=== PATIENT | female | born 1940 | race Caucasian/White ===

== ENCOUNTER 2023-04-10 21:56 | Inpatient (IN) | payer MEDICARE, BC ==
[~2023-04-10] VITALS: Ht 160 cm; Wt 63.5 kg
[2023-04-13] MEDS ORDERED: ASPI-869 PO (16:43)
[2023-04-13] MEDS ORDERED: ATOR40TA PO (16:43)
[2023-04-13] MEDS ORDERED: NICO-671 TD (16:49)
[2023-04-13] MEDS ORDERED: LOSA25TA27 PO (16:49)
[2023-04-13] MEDS ORDERED: FAMO-132 PO (16:49)
[2023-04-13] MEDS ORDERED: HEPA500034 SQ (16:49)
[2023-04-13] MEDS ORDERED: DOCU-141 PO (16:49)
[2023-04-13] MEDS ORDERED: ACET-3117 PO (16:49)
[2023-04-13] MEDS ORDERED: POLY17PO4 PO (17:11)
[2023-04-13] MEDS ORDERED: ONDA4VIA52 IV (17:11)
[2023-04-13] MEDS ORDERED: ACETAMINOPHEN 325 MG TABLET PO PRN (19:00)
[2023-04-13] MEDS ORDERED: MIRALAX 17 GM POWD.PACK PO PRN (19:15)
[2023-04-13] MEDS: ATORVASTATIN 40 MG TABLET PO SCH (22:19)
[2023-04-13] MEDS: HEPARIN SODIUM,PORCINE 5,000 UNITS/ML VIAL SQ SCH (22:48)
[2023-04-14 06:11] VITALS: BP 130/52; TEMP 98.1
[2023-04-14] MEDS: PANTOPRAZOLE SODIUM 40 MG TABLET.DR PO SCH (06:42)
[2023-04-14] MEDS: ASPIRIN 325 MG TABLET PO SCH (08:11)
[2023-04-14] MEDS: HEPARIN SODIUM,PORCINE 5,000 UNITS/ML VIAL SQ SCH (08:11)
[2023-04-14] MEDS: DOCUSATE SODIUM 100 MG CAPSULE PO SCH ×2 (08:12→17:31)
[2023-04-14] MEDS: NICOTINE 21 MG/24HR PATCH TD SCH (08:13)
[2023-04-14 08:20] VITALS: BP 140/71; TEMP 97.9
[2023-04-14] MEDS: LOSARTAN POTASSIUM 25 MG TABLET PO SCH (08:28)
[2023-04-14] MEDS: SPIRIVA RESPIMAT 1.25 MCG INH SCH (09:56)
[2023-04-14] MEDS: STIOLTO RESPIMAT INH SCH (09:56)
[2023-04-15] MEDS: ATORVASTATIN 40 MG TABLET PO SCH (00:18)
[2023-04-15] MEDS: HEPARIN SODIUM,PORCINE 5,000 UNITS/ML VIAL SQ SCH ×2 (00:19→09:08)
[2023-04-15] MEDS: PANTOPRAZOLE SODIUM 40 MG TABLET.DR PO SCH (06:37)
[2023-04-15 08:50] LABS: PLATELET COUNT (AUTO) 191 K/uL (179-408)
[2023-04-15] MEDS: SPIRIVA RESPIMAT 1.25 MCG INH SCH (09:04)
[2023-04-15] MEDS: DOCUSATE SODIUM 100 MG CAPSULE PO SCH (09:04)
[2023-04-15] MEDS: ASPIRIN 325 MG TABLET PO SCH (09:04)
[2023-04-15] MEDS: STIOLTO RESPIMAT INH SCH (09:04)
[2023-04-15 09:05] VITALS: BP 142/68
[2023-04-15] MEDS: LOSARTAN POTASSIUM 25 MG TABLET PO SCH (09:05)
[2023-04-15] MEDS: NICOTINE 21 MG/24HR PATCH TD SCH (09:09)
[2023-04-15 09:12] LABS: BASOPHILS % (AUTO) 0.5 % (0.0-2.0); EOSINOPHILS % (AUTO) 0.5 % (0.0-7.0); HEMATOCRIT 46.5 % (31.2-41.9); HEMOGLOBIN 15.5 g/dL (10.9-14.3); LYMPHOCYTES % (AUTO) 24.1 % (20.5-51.5); MEAN CORPUSCULAR HEMOGLOBIN 31.5 uug (24.7-32.8); MEAN CORPUSCULAR HGB CONC 33 g/dL (32.3-35.6); MEAN CORPUSCULAR VOLUME 94.4 fL (75.5-95.3); MONOCYTES # (AUTO) 0.7 K/uL (0.1-1.30); MONOCYTES % (AUTO) 8.4 % (0.0-11.0); NEUTROPHILS # (AUTO) 5.5 K/uL (1.8-8.9); NEUTROPHILS % (AUTO) 66.5 % (38.5-71.5); RED BLOOD CELL COUNT(AUTO) 4.92 MIL/uL (3.63-4.92); WHITE BLOOD COUNT (AUTO) 8.3 K/uL (3.8-11.8)
[2023-04-15 09:54] LABS: DIFFERENTIAL COMMENT 1
[2023-04-15 10:18] LABS: ALANINE AMINOTRANSFERASE 55 U/L (14-59); ALBUMIN 3.2 g/dL (3.4-5.0); ALKALINE PHOSPHATASE 170 U/L (50-136); ASPARTATE AMINOTRANSFERASE 37 U/L (15-37); BILIRUBIN,TOTAL 0.5 mg/dL (0.2-1.0); CALCIUM 9.6 mg/dL (8.5-10.1); CARBON DIOXIDE 31 mmol/L (21-32); CHLORIDE 102 mmol/L (98-107); CREATININE 1.2 mg/dL (0.6-1.3); GLUCOSE 99 mg/dL (74-106); MAGNESIUM 2.1 mg/dL (1.8-2.4); PHOSPHOROUS 4.1 mg/dL (2.5-4.9); POTASSIUM 4.8 mmol/L (3.5-5.1); SODIUM SERUM 138 mmol/L (136-145); TOTAL PROTEIN, SERUM 7.3 g/dL (6.4-8.2); UREA NITROGEN, BLOOD 29 mg/dL (7-18)
[2023-04-15] MEDS ORDERED: SPIRIVA RESPIMAT 1.25 MCG INH SCH (12:22)
[2023-04-15] MEDS ORDERED: STIOLTO RESPIMAT INH SCH (12:24)
== END 2023-04-15 14:54 | disposition short-term general hospital (02) | DRG 57 ==
LOC: MEDSURG3 21:56 → UNDOADMIN 21:56
PROVIDERS: ADMIT Physical Medicine & Rehabilitation Pain Medicine; ATTEND Physical Medicine & Rehabilitation Pain Medicine
DX: I69.354 Hemiplegia and hemiparesis following cerebral infarction affecting left non-dominant side (principal); N17.9 Acute kidney failure, unspecified; F03.93 Unspecified dementia, unspecified severity, with mood disturbance; E11.9 Type 2 diabetes mellitus without complications; I10 Essential (primary) hypertension; I25.10 Atherosclerotic heart disease of native coronary artery without angina pectoris; Z95.1 Presence of aortocoronary bypass graft; K21.9 Gastro-esophageal reflux disease without esophagitis; M19.90 Unspecified osteoarthritis, unspecified site; F39 Unspecified mood [affective] disorder
CPT/HCPCS: 36415; 83735; 84100; 85025; 97535-GO-CO; A4663; G0378; J1644; J8499

== ENCOUNTER 2023-04-10 21:56 | Inpatient (IN) | payer MEDICARE, MEDICAID, OTHER, BC ==
[~2023-04-10] VITALS: Ht 157.5 cm; Wt 63.5 kg
[2023-04-10 22:00] VITALS: BP 130/78; TEMP 98.2; O2SAT 93
[2023-04-10] MEDS ORDERED: REMEDY ESSENTIAL ZINC PASTE 113 GM TOP PRN (22:15)
[2023-04-11 05:10] VITALS: BP 115/72; TEMP 98.2; O2SAT 94
[2023-04-11] MEDS ORDERED: ACETAMINOPHEN 325 MG TABLET PO PRN (10:30)
[2023-04-11] MEDS ORDERED: Medication Not On Formulary EA (Ibandronate Sodium (Boniva) 150 MG) PO SCH (10:30)
[2023-04-11] MEDS: CLOPIDOGREL 75 MG TABLET PO SCH (10:31)
[2023-04-11] MEDS: DOCUSATE SODIUM 100 MG CAPSULE PO SCH ×2 (10:35→17:29)
[2023-04-11] MEDS ORDERED: ASPIRIN 81 MG TAB.CHEW PO SCH (11:00)
[2023-04-11] MEDS ORDERED: LOSARTAN POTASSIUM 50 MG TABLET PO SCH (11:00)
[2023-04-11] MEDS ORDERED: CITALOPRAM 20 MG TABLET PO SCH (11:00)
[2023-04-11] MEDS ORDERED: MEMANTINE HCL 10 MG TABLET PO SCH (11:00)
[2023-04-11] MEDS ORDERED: ALLOPURINOL 100 MG TABLET PO SCH (11:00)
[2023-04-11] MEDS: MIRALAX 17 GM POWD.PACK PO PRN (11:16)
[2023-04-11] MEDS: NICOTINE 21 MG/24HR PATCH TD SCH (11:16)
[2023-04-11] MEDS ORDERED: CEphaleXIN 500 MG CAPSULE PO SCH (14:00)
[2023-04-11] MEDS: LOSARTAN POTASSIUM 25 MG TABLET PO SCH (14:29)
[2023-04-11 18:29] VITALS: BP 148/62; TEMP 98.2; O2SAT 96
[2023-04-11 18:31] VITALS: BP 141/65; TEMP 98.2; O2SAT 96
[2023-04-11] MEDS: HEPARIN SODIUM,PORCINE 5,000 UNITS/ML VIAL SQ SCH (20:33)
[2023-04-11 20:56] VITALS: BP 131/70; TEMP 98; O2SAT 94
[2023-04-11] MEDS ORDERED: Medication Not On Formulary EA ([Oxybutynin Chloride] 5 MG) PO SCH (21:00)
[2023-04-11] MEDS ORDERED: TAMSULOSIN HCL 0.4 MG CAP.SR.24H PO SCH (21:00)
[2023-04-12 04:36] VITALS: BP 118/66; TEMP 98.1; O2SAT 94
[2023-04-12] MEDS: PANTOPRAZOLE SODIUM 40 MG TABLET.DR PO SCH (06:27)
[2023-04-12 08:30] VITALS: BP 122/49; TEMP 97.9; O2SAT 96
[2023-04-12] MEDS ORDERED: DONEPEZIL 10 MG TABLET PO SCH (09:00)
[2023-04-12] MEDS: NICOTINE 21 MG/24HR PATCH TD SCH ×2 (09:00→09:16)
[2023-04-12] MEDS: LOSARTAN POTASSIUM 25 MG TABLET PO SCH (09:15)
[2023-04-12] MEDS: ASPIRIN EC 325 MG TABLET.DR PO SCH (09:20)
[2023-04-12] MEDS: CLOPIDOGREL 75 MG TABLET PO SCH (09:20)
[2023-04-12] MEDS: HEPARIN SODIUM,PORCINE 5,000 UNITS/ML VIAL SQ SCH ×2 (09:21→21:22)
[2023-04-12] MEDS: DOCUSATE SODIUM 100 MG CAPSULE PO SCH ×2 (09:21→17:00)
[2023-04-12] MEDS: MIRALAX 17 GM POWD.PACK PO PRN (09:30)
[2023-04-12] MEDS ORDERED: VITAMINS A AND D OINT 42 GM TUBE TP PRN (12:00)
[2023-04-12] MEDS ORDERED: VITAMINS A AND D 5 GM UD PKT TP PRN (12:15)
[2023-04-12 17:07] VITALS: BP 147/48; TEMP 98.1; O2SAT 96
[2023-04-12] MEDS ORDERED: ATORVASTATIN 40 MG TABLET PO SCH (21:00)
[2023-04-12 22:52] VITALS: BP 119/70; TEMP 97.6
[2023-04-13] MEDS: PANTOPRAZOLE SODIUM 40 MG TABLET.DR PO SCH (06:04)
[2023-04-13] MEDS ORDERED: [UNRECOGNIZED DRUG - OTHER] INH SCH (09:00)
[2023-04-13] MEDS ORDERED: [UNRECOGNIZED DRUG - OTHER] INH SCH (09:00)
[2023-04-13] MEDS ORDERED: TIOTROPIUM INH SCH ×2 (09:00)
[2023-04-13] MEDS ORDERED: OLODATEROL INH SCH (09:00)
[2023-04-13] MEDS: HEPARIN SODIUM,PORCINE 5,000 UNITS/ML VIAL SQ SCH (10:15)
[2023-04-13 10:16] VITALS: BP 142/72
[2023-04-13] MEDS: LOSARTAN POTASSIUM 25 MG TABLET PO SCH (10:16)
[2023-04-13] MEDS: NICOTINE 21 MG/24HR PATCH TD SCH (10:16)
[2023-04-13] MEDS: ASPIRIN EC 325 MG TABLET.DR PO SCH (10:16)
[2023-04-13] MEDS: DOCUSATE SODIUM 100 MG CAPSULE PO SCH (10:16)
[2023-04-13] MEDS ORDERED: ATOR40TA PO (16:43)
[2023-04-13] MEDS ORDERED: ASPI-869 PO (16:43)
[2023-04-13] MEDS ORDERED: FAMO-132 PO (16:49)
[2023-04-13] MEDS ORDERED: LOSA25TA27 PO (16:49)
[2023-04-13] MEDS ORDERED: HEPA500034 SQ (16:49)
[2023-04-13] MEDS ORDERED: DOCU-141 PO (16:49)
[2023-04-13] MEDS ORDERED: NICO-671 TD (16:49)
[2023-04-13] MEDS ORDERED: ACET-3117 PO (16:49)
[2023-04-13] MEDS ORDERED: ONDA4VIA52 IV (17:11)
[2023-04-13] MEDS ORDERED: POLY17PO4 PO (17:11)
== END 2023-04-13 14:21 | disposition short-term general hospital (02) | DRG 57 ==
LOC: EDBD → EDUNIT# 21:56
PROVIDERS: ADMIT Physical Medicine & Rehabilitation Pain Medicine; ATTEND Physical Medicine & Rehabilitation Pain Medicine
DX: I69.354 Hemiplegia and hemiparesis following cerebral infarction affecting left non-dominant side (principal); N17.9 Acute kidney failure, unspecified; F03.93 Unspecified dementia, unspecified severity, with mood disturbance; E11.9 Type 2 diabetes mellitus without complications; I10 Essential (primary) hypertension; I25.10 Atherosclerotic heart disease of native coronary artery without angina pectoris; Z95.1 Presence of aortocoronary bypass graft; K21.9 Gastro-esophageal reflux disease without esophagitis; M19.90 Unspecified osteoarthritis, unspecified site
CPT/HCPCS: 97535-GO-CO; A4663; J1644; J8499

== ENCOUNTER 2023-04-17 14:57 | Inpatient (IN) | payer MEDICARE, BC ==
[~2023-04-17] VITALS: Ht 152.4 cm; Wt 63.5 kg
[~2023-04-17 14:57] MED LIST: ACET-3117 PO; ASPI-869 PO; ATOR40TA PO; DOCU-141 PO; FAMO-132 PO; HEPA500034 SQ; LOSA25TA27 PO; NICO-671 TD; ONDA4VIA52 IV; POLY17PO4 PO
[2023-04-17 16:00] VITALS: BP 133/80; TEMP 97.6; O2SAT 97
[2023-04-17] MEDS ORDERED: ASPI-869 PO (17:56)
[2023-04-17] MEDS ORDERED: ACET-3117 PO (17:56)
[2023-04-17] MEDS ORDERED: ZOLP5TAB8 PO (17:56)
[2023-04-17] MEDS ORDERED: DOCU100C36 PO (17:56)
[2023-04-17] MEDS ORDERED: ONDA4VIA52 IM/IV (17:56)
[2023-04-17] MEDS ORDERED: TIOT4MIS2 IH (17:56)
[2023-04-17] MEDS ORDERED: LOSA25TA3 PO (17:56)
[2023-04-17] MEDS ORDERED: FAMO20TA8 PO (17:56)
[2023-04-17] MEDS ORDERED: TIOT4MIS3 IH (17:56)
[2023-04-17] MEDS ORDERED: NICO-780 TP (17:56)
[2023-04-17] MEDS ORDERED: MAGN400O6 PO (17:56)
[2023-04-17] MEDS ORDERED: POLY119P2 PO (17:56)
[2023-04-17] MEDS ORDERED: ATOR40TA PO (17:56)
[2023-04-17 20:00] VITALS: BP 117/70; TEMP 98; O2SAT 96
[2023-04-17] MEDS: FAMOTIDINE 20 MG TABLET PO SCH (22:07)
[2023-04-17] MEDS: ATORVASTATIN 40 MG TABLET PO SCH (22:07)
[2023-04-18 07:55] VITALS: BP 135/76; TEMP 97.7; O2SAT 94
[2023-04-18] MEDS ORDERED: ZOLPIDEM 5 MG TABLET PO PRN (09:30)
[2023-04-18] MEDS ORDERED: MAGNESIUM HYDROXIDE 30 ML LIQUID UDC PO PRN (09:30)
[2023-04-18] MEDS ORDERED: MIRALAX 17 GM POWD.PACK PO PRN (09:30)
[2023-04-18] MEDS ORDERED: ONDANSETRON 4 MG/2 ML VIAL IV PRN (09:30)
[2023-04-18] MEDS: LOSARTAN POTASSIUM 25 MG TABLET PO SCH (09:50)
[2023-04-18] MEDS: DOCUSATE SODIUM 100 MG CAPSULE PO SCH ×2 (09:50→21:35)
[2023-04-18] MEDS: ASPIRIN EC 325 MG TABLET.DR PO SCH (09:50)
[2023-04-18] MEDS: NICOTINE 21 MG/24HR PATCH TD SCH (09:53)
[2023-04-18] MEDS: ACETAMINOPHEN 325 MG TABLET PO PRN (15:09)
[2023-04-18] MEDS: STIOLTO RESPIMAT INJ SCH (15:12)
[2023-04-18 15:54] VITALS: BP 117/51; TEMP 97.6; O2SAT 95
[2023-04-18] MEDS: SPIRIVA RESPIMAT INH SCH (18:33)
[2023-04-18] MEDS: ATORVASTATIN 40 MG TABLET PO SCH (21:35)
[2023-04-18] MEDS: FAMOTIDINE 20 MG TABLET PO SCH (21:35)
[2023-04-18] MEDS: HEPARIN SODIUM,PORCINE 5,000 UNITS/ML VIAL SQ SCH (21:39)
[2023-04-19 05:57] VITALS: BP 132/68; TEMP 98.3; O2SAT 98
[2023-04-19] MEDS: SPIRIVA RESPIMAT INH SCH (09:00)
[2023-04-19] MEDS: STIOLTO RESPIMAT INJ SCH (09:00)
[2023-04-19] MEDS: NICOTINE 21 MG/24HR PATCH TD SCH (09:15)
[2023-04-19] MEDS: LOSARTAN POTASSIUM 25 MG TABLET PO SCH (09:16)
[2023-04-19] MEDS: DOCUSATE SODIUM 100 MG CAPSULE PO SCH ×2 (09:16→20:21)
[2023-04-19] MEDS: ASPIRIN EC 325 MG TABLET.DR PO SCH (09:16)
[2023-04-19] MEDS: HEPARIN SODIUM,PORCINE 5,000 UNITS/ML VIAL SQ SCH ×2 (09:19→20:22)
[2023-04-19 11:20] VITALS: BP 135/75; TEMP 97.9; O2SAT 97
[2023-04-19 16:14] VITALS: BP 133/71; TEMP 97.7; O2SAT 96
[2023-04-19] MEDS: FAMOTIDINE 20 MG TABLET PO SCH (20:21)
[2023-04-19] MEDS: ATORVASTATIN 40 MG TABLET PO SCH (20:21)
[2023-04-19 20:38] VITALS: BP 120/72; TEMP 97.9; O2SAT 96
[2023-04-20 07:55] VITALS: BP 134/73; TEMP 98; O2SAT 97
[2023-04-20] MEDS: ASPIRIN EC 325 MG TABLET.DR PO SCH ×2 (09:00→09:01)
[2023-04-20] MEDS: DOCUSATE SODIUM 100 MG CAPSULE PO SCH ×2 (09:02→21:00)
[2023-04-20] MEDS: HEPARIN SODIUM,PORCINE 5,000 UNITS/ML VIAL SQ SCH ×2 (09:06→21:02)
[2023-04-20] MEDS: NICOTINE 21 MG/24HR PATCH TD SCH (09:18)
[2023-04-20] MEDS: LOSARTAN POTASSIUM 25 MG TABLET PO SCH (09:18)
[2023-04-20] MEDS: SPIRIVA RESPIMAT INH SCH (09:23)
[2023-04-20] MEDS: STIOLTO RESPIMAT INJ SCH (09:23)
[2023-04-20 16:09] VITALS: BP 136/76; TEMP 98; O2SAT 97
[2023-04-20] MEDS: ENSURE ENLIVE (VAN) 240 ML LIQUID PO SCH (17:32)
[2023-04-20] MEDS: FAMOTIDINE 20 MG TABLET PO SCH (21:00)
[2023-04-20] MEDS: ATORVASTATIN 40 MG TABLET PO SCH (21:00)
[2023-04-20 21:31] VITALS: BP 126/68; TEMP 98.2; O2SAT 99
[2023-04-21 05:43] VITALS: BP 118/58; TEMP 98.5; O2SAT 99
[2023-04-21 07:57] VITALS: BP 120/67; TEMP 98.5; O2SAT 96
[2023-04-21] MEDS: DOCUSATE SODIUM 100 MG CAPSULE PO SCH ×2 (09:00→21:00)
[2023-04-21] MEDS: STIOLTO RESPIMAT INJ SCH (09:00)
[2023-04-21] MEDS: SPIRIVA RESPIMAT INH SCH (09:00)
[2023-04-21 09:18] LABS: BASOPHILS # (AUTO) 0.1 K/UL (0.0-0.2); BASOPHILS % (AUTO) 0.8 % (0.0-2.0); EOSINOPHILS # (AUTO) 0.1 K/uL (0.0-0.7); EOSINOPHILS % (AUTO) 1.9 % (0.0-7.0); HEMATOCRIT 44.4 % (31.2-41.9); HEMOGLOBIN 14.4 g/dL (10.9-14.3); LYMPHOCYTES # (AUTO) 2.1 K/uL (0.8-4.8); LYMPHOCYTES % (AUTO) 28.7 % (20.5-51.5); MEAN CORPUSCULAR HEMOGLOBIN 30.9 uug (24.7-32.8); MEAN CORPUSCULAR HGB CONC 32 g/dL (32.3-35.6); MEAN CORPUSCULAR VOLUME 95.5 fL (75.5-95.3); MONOCYTES # (AUTO) 0.5 K/uL (0.1-1.30); MONOCYTES % (AUTO) 6.4 % (0.0-11.0); NEUTROPHILS # (AUTO) 4.7 K/uL (1.8-8.9); NEUTROPHILS % (AUTO) 62.2 % (38.5-71.5); PLATELET COUNT (AUTO) 272 K/uL (179-408); RED BLOOD CELL COUNT(AUTO) 4.65 MIL/uL (3.63-4.92); RED CELL DISTRIBUTION WIDTH 14.7 % (12.3-17.7); WHITE BLOOD COUNT (AUTO) 7.5 K/uL (3.8-11.8)
[2023-04-21 09:23] LABS: DIFFERENTIAL COMMENT 1
[2023-04-21 09:47] LABS: ALANINE AMINOTRANSFERASE 37 U/L (14-59); ALBUMIN 2.7 g/dL (3.4-5.0); ALKALINE PHOSPHATASE 198 U/L (50-136); ASPARTATE AMINOTRANSFERASE 21 U/L (15-37); BILIRUBIN,TOTAL 0.5 mg/dL (0.2-1.0); CALCIUM 9.3 mg/dL (8.5-10.1); CARBON DIOXIDE 29 mmol/L (21-32); CHLORIDE 105 mmol/L (98-107); CREATININE 1.1 mg/dL (0.6-1.3); GLUCOSE 96 mg/dL (74-106); MAGNESIUM 2.2 mg/dL (1.8-2.4); PHOSPHOROUS 3.8 mg/dL (2.5-4.9); POTASSIUM 4.4 mmol/L (3.5-5.1); SODIUM SERUM 140 mmol/L (136-145); UREA NITROGEN, BLOOD 29 mg/dL (7-18)
[2023-04-21] MEDS: LOSARTAN POTASSIUM 25 MG TABLET PO SCH (11:26)
[2023-04-21] MEDS: ASPIRIN EC 325 MG TABLET.DR PO SCH (11:26)
[2023-04-21] MEDS: NICOTINE 21 MG/24HR PATCH TD SCH (11:27)
[2023-04-21] MEDS: HEPARIN SODIUM,PORCINE 5,000 UNITS/ML VIAL SQ SCH ×2 (11:31→20:56)
[2023-04-21] MEDS: ENSURE ENLIVE (VAN) 240 ML LIQUID PO SCH ×2 (13:48→17:25)
[2023-04-21 16:02] VITALS: BP 114/63; TEMP 98.5; O2SAT 96
[2023-04-21] MEDS: ATORVASTATIN 40 MG TABLET PO SCH (20:54)
[2023-04-21] MEDS: FAMOTIDINE 20 MG TABLET PO SCH (20:54)
[2023-04-21 21:39] VITALS: BP 113/63; TEMP 98.2; O2SAT 100
[2023-04-22 07:41] VITALS: BP 104/56; TEMP 98.3; O2SAT 95
[2023-04-22] MEDS: DOCUSATE SODIUM 100 MG CAPSULE PO SCH ×3 (08:42→21:01)
[2023-04-22] MEDS: NICOTINE 21 MG/24HR PATCH TD SCH (08:42)
[2023-04-22] MEDS: LOSARTAN POTASSIUM 25 MG TABLET PO SCH (08:44)
[2023-04-22] MEDS: HEPARIN SODIUM,PORCINE 5,000 UNITS/ML VIAL SQ SCH ×2 (08:47→21:03)
[2023-04-22] MEDS: ENSURE ENLIVE (VAN) 240 ML LIQUID PO SCH ×2 (08:48→16:37)
[2023-04-22] MEDS: SPIRIVA RESPIMAT INH SCH (08:48)
[2023-04-22] MEDS: STIOLTO RESPIMAT INJ SCH (08:48)
[2023-04-22] MEDS: ACETAMINOPHEN 325 MG TABLET PO PRN ×2 (13:52→21:01)
[2023-04-22 15:56] VITALS: BP 105/69; TEMP 97.9; O2SAT 96
[2023-04-22 20:20] VITALS: BP 115/56; TEMP 98.4; O2SAT 97
[2023-04-22] MEDS: FAMOTIDINE 20 MG TABLET PO SCH (21:01)
[2023-04-22] MEDS: ATORVASTATIN 40 MG TABLET PO SCH (21:01)
[2023-04-23 04:20] VITALS: BP 124/64; TEMP 97.5; O2SAT 94
[2023-04-23] MEDS: SPIRIVA RESPIMAT INH SCH (09:00)
[2023-04-23] MEDS: STIOLTO RESPIMAT INJ SCH (09:00)
[2023-04-23] MEDS: LOSARTAN POTASSIUM 25 MG TABLET PO SCH (09:56)
[2023-04-23] MEDS: DOCUSATE SODIUM 100 MG CAPSULE PO SCH ×2 (09:56→20:36)
[2023-04-23] MEDS: ASPIRIN EC 325 MG TABLET.DR PO SCH (09:56)
[2023-04-23] MEDS: NICOTINE 21 MG/24HR PATCH TD SCH (09:57)
[2023-04-23] MEDS: HEPARIN SODIUM,PORCINE 5,000 UNITS/ML VIAL SQ SCH ×2 (09:57→20:35)
[2023-04-23] MEDS: ENSURE ENLIVE (VAN) 240 ML LIQUID PO SCH ×2 (09:57→17:35)
[2023-04-23] MEDS ORDERED: REMEDY ESSENTIAL ZINC PASTE 113 GM TOP PRN (10:00)
[2023-04-23 11:45] VITALS: TEMP 97.5
[2023-04-23 15:29] VITALS: TEMP 97.6
[2023-04-23] MEDS: ATORVASTATIN 40 MG TABLET PO SCH (20:29)
[2023-04-23] MEDS: FAMOTIDINE 20 MG TABLET PO SCH (20:29)
[2023-04-23] MEDS: REMEDY ESSENTIAL ZINC PASTE 113 GM TOP SCH (20:37)
[2023-04-24 05:10] VITALS: BP 114/71; TEMP 98.6; O2SAT 98
[2023-04-24 08:03] VITALS: TEMP 97.8
[2023-04-24] MEDS: STIOLTO RESPIMAT INJ SCH (09:00)
[2023-04-24] MEDS: SPIRIVA RESPIMAT INH SCH (09:00)
[2023-04-24] MEDS: ASPIRIN EC 325 MG TABLET.DR PO SCH (09:04)
[2023-04-24] MEDS: DOCUSATE SODIUM 100 MG CAPSULE PO SCH ×2 (09:04→20:28)
[2023-04-24] MEDS: LOSARTAN POTASSIUM 25 MG TABLET PO SCH (09:04)
[2023-04-24] MEDS: ENSURE ENLIVE (VAN) 240 ML LIQUID PO SCH ×2 (09:05→17:20)
[2023-04-24] MEDS: HEPARIN SODIUM,PORCINE 5,000 UNITS/ML VIAL SQ SCH ×2 (09:06→20:22)
[2023-04-24] MEDS: NICOTINE 21 MG/24HR PATCH TD SCH (09:06)
[2023-04-24] MEDS: REMEDY ESSENTIAL ZINC PASTE 113 GM TOP SCH ×2 (09:07→20:29)
[2023-04-24] MEDS: ACETAMINOPHEN 325 MG TABLET PO PRN (10:15)
[2023-04-24 11:46] VITALS: TEMP 97.2
[2023-04-24 15:51] VITALS: TEMP 97.8
[2023-04-24 19:44] VITALS: BP 119/68; TEMP 98.1; O2SAT 96
[2023-04-24] MEDS: FAMOTIDINE 20 MG TABLET PO SCH (20:22)
[2023-04-24] MEDS: ATORVASTATIN 40 MG TABLET PO SCH (20:30)
[2023-04-25 03:46] VITALS: BP 122/70; TEMP 98.6; O2SAT 97
[2023-04-25] MEDS: ASPIRIN EC 325 MG TABLET.DR PO SCH (09:06)
[2023-04-25] MEDS: HEPARIN SODIUM,PORCINE 5,000 UNITS/ML VIAL SQ SCH ×2 (09:08→20:56)
[2023-04-25] MEDS: LOSARTAN POTASSIUM 25 MG TABLET PO SCH (09:08)
[2023-04-25] MEDS: DOCUSATE SODIUM 100 MG CAPSULE PO SCH ×2 (09:08→20:56)
[2023-04-25] MEDS: NICOTINE 21 MG/24HR PATCH TD SCH (09:09)
[2023-04-25] MEDS: REMEDY ESSENTIAL ZINC PASTE 113 GM TOP SCH ×2 (09:10→21:22)
[2023-04-25] MEDS: ENSURE ENLIVE (VAN) 240 ML LIQUID PO SCH ×2 (09:10→17:10)
[2023-04-25] MEDS: SPIRIVA RESPIMAT INH SCH (09:11)
[2023-04-25] MEDS: STIOLTO RESPIMAT INJ SCH (09:11)
[2023-04-25 15:54] VITALS: TEMP 98.2
[2023-04-25 16:00] VITALS: BP 113/69; TEMP 98.2; O2SAT 97
[2023-04-25 19:49] VITALS: BP 126/71; TEMP 98.3; O2SAT 95
[2023-04-25] MEDS: ATORVASTATIN 40 MG TABLET PO SCH (20:56)
[2023-04-25] MEDS: ACETAMINOPHEN 325 MG TABLET PO PRN (20:56)
[2023-04-25] MEDS: FAMOTIDINE 20 MG TABLET PO SCH (20:57)
[2023-04-26 07:19] LABS: BASOPHILS # (AUTO) 0.1 K/UL (0.0-0.2); BASOPHILS % (AUTO) 1.3 % (0.0-2.0); EOSINOPHILS # (AUTO) 0.3 K/uL (0.0-0.7); EOSINOPHILS % (AUTO) 3.6 % (0.0-7.0); HEMATOCRIT 45.7 % (31.2-41.9); HEMOGLOBIN 15.1 g/dL (10.9-14.3); LYMPHOCYTES # (AUTO) 3.2 K/uL (0.8-4.8); LYMPHOCYTES % (AUTO) 42.5 % (20.5-51.5); MEAN CORPUSCULAR HEMOGLOBIN 31.2 uug (24.7-32.8); MEAN CORPUSCULAR HGB CONC 33 g/dL (32.3-35.6); MEAN CORPUSCULAR VOLUME 94.5 fL (75.5-95.3); MONOCYTES # (AUTO) 0.5 K/uL (0.1-1.30); MONOCYTES % (AUTO) 6.4 % (0.0-11.0); NEUTROPHILS # (AUTO) 3.5 K/uL (1.8-8.9); NEUTROPHILS % (AUTO) 46.2 % (38.5-71.5); PLATELET COUNT (AUTO) 243 K/uL (179-408); RED BLOOD CELL COUNT(AUTO) 4.83 MIL/uL (3.63-4.92); RED CELL DISTRIBUTION WIDTH 14.7 % (12.3-17.7); WHITE BLOOD COUNT (AUTO) 7.5 K/uL (3.8-11.8)
[2023-04-26 07:28] LABS: DIFFERENTIAL COMMENT 1
[2023-04-26 07:43] LABS: ALBUMIN 2.9 g/dL (3.4-5.0); BILIRUBIN,TOTAL 0.3 mg/dL (0.2-1.0); CALCIUM 9.3 mg/dL (8.5-10.1); CREATININE 1.1 mg/dL (0.6-1.3); PHOSPHOROUS 4.1 mg/dL (2.5-4.9); POTASSIUM 4.3 mmol/L (3.5-5.1); TOTAL PROTEIN, SERUM 6.8 g/dL (6.4-8.2)
[2023-04-26 08:00] VITALS: BP 128/74; TEMP 97.6; O2SAT 94
[2023-04-26] MEDS: ASPIRIN EC 325 MG TABLET.DR PO SCH (09:00)
[2023-04-26] MEDS: SPIRIVA RESPIMAT INH SCH (09:00)
[2023-04-26] MEDS: STIOLTO RESPIMAT INJ SCH (09:00)
[2023-04-26] MEDS: DOCUSATE SODIUM 100 MG CAPSULE PO SCH ×2 (09:01→20:29)
[2023-04-26] MEDS: HEPARIN SODIUM,PORCINE 5,000 UNITS/ML VIAL SQ SCH ×2 (09:01→20:38)
[2023-04-26] MEDS: LOSARTAN POTASSIUM 25 MG TABLET PO SCH (09:02)
[2023-04-26] MEDS: ENSURE ENLIVE (VAN) 240 ML LIQUID PO SCH ×2 (09:03→17:30)
[2023-04-26] MEDS: REMEDY ESSENTIAL ZINC PASTE 113 GM TOP SCH (09:05)
[2023-04-26] MEDS: NICOTINE 21 MG/24HR PATCH TD SCH (09:05)
[2023-04-26] MEDS: ACETAMINOPHEN 325 MG TABLET PO PRN (10:41)
[2023-04-26 16:00] VITALS: BP 132/79; TEMP 97.7; O2SAT 96
[2023-04-26 20:22] VITALS: BP 127/77; TEMP 98.6; O2SAT 96
[2023-04-26] MEDS: ATORVASTATIN 40 MG TABLET PO SCH (20:29)
[2023-04-26] MEDS: FAMOTIDINE 20 MG TABLET PO SCH (20:29)
[2023-04-27] MEDS: REMEDY ESSENTIAL ZINC PASTE 113 GM TOP SCH ×3 (03:58→21:56)
[2023-04-27 04:10] VITALS: BP 128/69; TEMP 97.8; O2SAT 97
[2023-04-27 08:00] VITALS: BP 134/76; TEMP 97.6; O2SAT 94
[2023-04-27] MEDS: ENSURE ENLIVE (VAN) 240 ML LIQUID PO SCH ×2 (08:42→17:46)
[2023-04-27] MEDS: ASPIRIN EC 325 MG TABLET.DR PO SCH (08:49)
[2023-04-27] MEDS: DOCUSATE SODIUM 100 MG CAPSULE PO SCH ×2 (08:50→20:49)
[2023-04-27] MEDS: HEPARIN SODIUM,PORCINE 5,000 UNITS/ML VIAL SQ SCH ×2 (08:52→21:56)
[2023-04-27] MEDS: LOSARTAN POTASSIUM 25 MG TABLET PO SCH (08:55)
[2023-04-27] MEDS: NICOTINE 21 MG/24HR PATCH TD SCH (08:59)
[2023-04-27] MEDS: SPIRIVA RESPIMAT INH SCH (09:00)
[2023-04-27] MEDS: STIOLTO RESPIMAT INJ SCH (09:00)
[2023-04-27 16:00] VITALS: BP 99/57; TEMP 98.2; O2SAT 100
[2023-04-27] MEDS: FAMOTIDINE 20 MG TABLET PO SCH (20:48)
[2023-04-27] MEDS: ATORVASTATIN 40 MG TABLET PO SCH (20:49)
[2023-04-27 22:13] VITALS: BP 131/68; TEMP 98.7; O2SAT 95
[2023-04-28 06:38] VITALS: BP 93/70; TEMP 98.7; O2SAT 94
[2023-04-28 08:00] VITALS: BP 104/78; TEMP 97.7; O2SAT 99
[2023-04-28] MEDS: LOSARTAN POTASSIUM 25 MG TABLET PO SCH (09:00)
[2023-04-28] MEDS: STIOLTO RESPIMAT INJ SCH (09:00)
[2023-04-28] MEDS: SPIRIVA RESPIMAT INH SCH (09:00)
[2023-04-28] MEDS: ENSURE ENLIVE (VAN) 240 ML LIQUID PO SCH ×2 (09:31→17:19)
[2023-04-28] MEDS: ASPIRIN EC 325 MG TABLET.DR PO SCH (09:32)
[2023-04-28] MEDS: REMEDY ESSENTIAL ZINC PASTE 113 GM TOP SCH ×2 (09:33→21:56)
[2023-04-28] MEDS: NICOTINE 21 MG/24HR PATCH TD SCH (09:33)
[2023-04-28] MEDS: DOCUSATE SODIUM 100 MG CAPSULE PO SCH ×2 (09:34→20:08)
[2023-04-28] MEDS: HEPARIN SODIUM,PORCINE 5,000 UNITS/ML VIAL SQ SCH ×2 (09:35→20:12)
[2023-04-28 15:26] VITALS: BP 113/69; TEMP 97.6; O2SAT 91
[2023-04-28] MEDS: ACETAMINOPHEN 325 MG TABLET PO PRN (18:07)
[2023-04-28] MEDS: FAMOTIDINE 20 MG TABLET PO SCH (20:08)
[2023-04-28] MEDS: ATORVASTATIN 40 MG TABLET PO SCH (20:08)
[2023-04-28 20:15] VITALS: BP 144/70; TEMP 98.3; O2SAT 95
[2023-04-28] MEDS ORDERED: hydrALAZINE HCL 25 MG TABLET PO PRN (20:45)
[2023-04-29 08:00] VITALS: BP 135/70; TEMP 98.4; O2SAT 97
[2023-04-29] MEDS: DOCUSATE SODIUM 100 MG CAPSULE PO SCH ×2 (08:28→20:58)
[2023-04-29] MEDS: LOSARTAN POTASSIUM 25 MG TABLET PO SCH (08:28)
[2023-04-29] MEDS: ASPIRIN EC 325 MG TABLET.DR PO SCH (08:28)
[2023-04-29] MEDS: NICOTINE 21 MG/24HR PATCH TD SCH (08:28)
[2023-04-29] MEDS: HEPARIN SODIUM,PORCINE 5,000 UNITS/ML VIAL SQ SCH ×2 (08:29→20:59)
[2023-04-29] MEDS: ENSURE ENLIVE (VAN) 240 ML LIQUID PO SCH ×2 (08:30→17:19)
[2023-04-29] MEDS: SPIRIVA RESPIMAT INH SCH (08:30)
[2023-04-29] MEDS: STIOLTO RESPIMAT INJ SCH (08:30)
[2023-04-29] MEDS: REMEDY ESSENTIAL ZINC PASTE 113 GM TOP SCH ×2 (08:30→20:59)
[2023-04-29 15:14] VITALS: BP 122/73; TEMP 97.7; O2SAT 97
[2023-04-29 20:00] VITALS: BP 125/63; TEMP 97.8; O2SAT 94
[2023-04-29] MEDS: FAMOTIDINE 20 MG TABLET PO SCH (20:58)
[2023-04-29] MEDS: ATORVASTATIN 40 MG TABLET PO SCH (20:58)
[2023-04-30 04:00] VITALS: BP 118/57; TEMP 97.9; O2SAT 94
[2023-04-30 08:00] VITALS: BP 120/80; TEMP 98.2; O2SAT 96
[2023-04-30] MEDS: HEPARIN SODIUM,PORCINE 5,000 UNITS/ML VIAL SQ SCH ×2 (08:43→20:24)
[2023-04-30] MEDS: LOSARTAN POTASSIUM 25 MG TABLET PO SCH (08:44)
[2023-04-30] MEDS: STIOLTO RESPIMAT INJ SCH (08:44)
[2023-04-30] MEDS: ASPIRIN EC 325 MG TABLET.DR PO SCH (08:44)
[2023-04-30] MEDS: ENSURE ENLIVE (VAN) 240 ML LIQUID PO SCH ×2 (08:44→17:27)
[2023-04-30] MEDS: SPIRIVA RESPIMAT INH SCH (08:44)
[2023-04-30] MEDS: DOCUSATE SODIUM 100 MG CAPSULE PO SCH ×2 (08:44→20:22)
[2023-04-30] MEDS: NICOTINE 21 MG/24HR PATCH TD SCH (08:45)
[2023-04-30] MEDS: REMEDY ESSENTIAL ZINC PASTE 113 GM TOP SCH ×2 (08:45→20:29)
[2023-04-30 15:18] VITALS: BP 113/54; TEMP 98.2; O2SAT 95
[2023-04-30] MEDS: ACETAMINOPHEN 325 MG TABLET PO PRN (16:54)
[2023-04-30 20:00] VITALS: BP 139/74; TEMP 98.1; O2SAT 98
[2023-04-30] MEDS: ATORVASTATIN 40 MG TABLET PO SCH (20:22)
[2023-04-30] MEDS: FAMOTIDINE 20 MG TABLET PO SCH (20:22)
[2023-05-01 08:00] VITALS: BP 118/70; TEMP 98.4; O2SAT 97
[2023-05-01] MEDS: STIOLTO RESPIMAT INJ SCH (09:00)
[2023-05-01] MEDS: SPIRIVA RESPIMAT INH SCH (09:00)
[2023-05-01] MEDS: NICOTINE 21 MG/24HR PATCH TD SCH ×2 (09:00→09:32)
[2023-05-01] MEDS: ASPIRIN EC 325 MG TABLET.DR PO SCH (09:29)
[2023-05-01] MEDS: HEPARIN SODIUM,PORCINE 5,000 UNITS/ML VIAL SQ SCH ×2 (09:30→21:26)
[2023-05-01] MEDS: DOCUSATE SODIUM 100 MG CAPSULE PO SCH ×2 (09:30→21:25)
[2023-05-01] MEDS: LOSARTAN POTASSIUM 25 MG TABLET PO SCH (09:32)
[2023-05-01] MEDS: ENSURE ENLIVE (VAN) 240 ML LIQUID PO SCH ×2 (10:13→17:21)
[2023-05-01] MEDS: REMEDY ESSENTIAL ZINC PASTE 113 GM TOP SCH ×2 (10:13→21:28)
[2023-05-01] MEDS: ACETAMINOPHEN 325 MG TABLET PO PRN (11:16)
[2023-05-01 15:08] VITALS: BP 126/54; TEMP 98.4; O2SAT 91
[2023-05-01 20:30] VITALS: BP 135/77; TEMP 97.8; O2SAT 96
[2023-05-01] MEDS: ATORVASTATIN 40 MG TABLET PO SCH (21:25)
[2023-05-01] MEDS: FAMOTIDINE 20 MG TABLET PO SCH (21:25)
[2023-05-02 08:00] VITALS: BP 139/64; TEMP 98.1; O2SAT 96
[2023-05-02] MEDS: SPIRIVA RESPIMAT INH SCH (09:00)
[2023-05-02] MEDS: NICOTINE 21 MG/24HR PATCH TD SCH (09:00)
[2023-05-02] MEDS: STIOLTO RESPIMAT INJ SCH (09:00)
[2023-05-02] MEDS: ASPIRIN EC 325 MG TABLET.DR PO SCH (09:50)
[2023-05-02] MEDS: DOCUSATE SODIUM 100 MG CAPSULE PO SCH ×2 (09:50→21:08)
[2023-05-02] MEDS: HEPARIN SODIUM,PORCINE 5,000 UNITS/ML VIAL SQ SCH ×2 (09:52→21:09)
[2023-05-02] MEDS: ENSURE ENLIVE (VAN) 240 ML LIQUID PO SCH ×2 (09:54→18:03)
[2023-05-02] MEDS: REMEDY ESSENTIAL ZINC PASTE 113 GM TOP SCH (09:54)
[2023-05-02] MEDS: LOSARTAN POTASSIUM 25 MG TABLET PO SCH (09:57)
[2023-05-02] MEDS ORDERED: FOSFOMYCIN TROMETHAMINE 3 GM PACKET PO ONE (13:00)
[2023-05-02 16:56] VITALS: BP 126/65; TEMP 98.4; O2SAT 95
[2023-05-02 20:00] VITALS: BP 132/68; TEMP 98; O2SAT 96
[2023-05-02] MEDS: ATORVASTATIN 40 MG TABLET PO SCH (21:08)
[2023-05-02] MEDS: FAMOTIDINE 20 MG TABLET PO SCH (21:08)
[2023-05-03] MEDS: REMEDY ESSENTIAL ZINC PASTE 113 GM TOP SCH ×3 (00:38→21:04)
[2023-05-03] MEDS: HEPARIN SODIUM,PORCINE 5,000 UNITS/ML VIAL SQ SCH ×2 (08:52→21:03)
[2023-05-03] MEDS: ASPIRIN EC 325 MG TABLET.DR PO SCH (08:53)
[2023-05-03] MEDS: DOCUSATE SODIUM 100 MG CAPSULE PO SCH ×2 (08:53→21:00)
[2023-05-03] MEDS: LOSARTAN POTASSIUM 25 MG TABLET PO SCH (08:53)
[2023-05-03] MEDS: NICOTINE 21 MG/24HR PATCH TD SCH (08:53)
[2023-05-03] MEDS: STIOLTO RESPIMAT INJ SCH (09:00)
[2023-05-03] MEDS: SPIRIVA RESPIMAT INH SCH (09:00)
[2023-05-03] MEDS: ENSURE ENLIVE (VAN) 240 ML LIQUID PO SCH ×2 (09:04→17:00)
[2023-05-03 11:26] VITALS: BP 128/60; TEMP 98.4; O2SAT 97
[2023-05-03 16:08] VITALS: BP 125/70; TEMP 98.4; O2SAT 96
[2023-05-03 20:00] VITALS: BP 143/54; TEMP 97.4; O2SAT 96
[2023-05-03] MEDS: FAMOTIDINE 20 MG TABLET PO SCH (21:00)
[2023-05-03] MEDS: ATORVASTATIN 40 MG TABLET PO SCH (21:00)
[2023-05-03 22:45] VITALS: BP 147/73
[2023-05-04 08:00] VITALS: BP 120/69; TEMP 97.5; O2SAT 97
[2023-05-04] MEDS: ENSURE ENLIVE (VAN) 240 ML LIQUID PO SCH (08:00)
[2023-05-04] MEDS: STIOLTO RESPIMAT INJ SCH (09:00)
[2023-05-04] MEDS: SPIRIVA RESPIMAT INH SCH (09:00)
[2023-05-04] MEDS: DOCUSATE SODIUM 100 MG CAPSULE PO SCH ×2 (09:39→20:46)
[2023-05-04] MEDS: LOSARTAN POTASSIUM 25 MG TABLET PO SCH (09:39)
[2023-05-04] MEDS: ASPIRIN EC 325 MG TABLET.DR PO SCH (09:39)
[2023-05-04] MEDS: HEPARIN SODIUM,PORCINE 5,000 UNITS/ML VIAL SQ SCH ×2 (09:40→20:46)
[2023-05-04] MEDS: NICOTINE 21 MG/24HR PATCH TD SCH (09:41)
[2023-05-04] MEDS: REMEDY ESSENTIAL ZINC PASTE 113 GM TOP SCH ×2 (09:41→20:47)
[2023-05-04 15:47] VITALS: BP 123/60; TEMP 98.3; O2SAT 96
[2023-05-04 20:00] VITALS: BP 135/52; TEMP 97.6; O2SAT 97
[2023-05-04] MEDS: FAMOTIDINE 20 MG TABLET PO SCH (20:46)
[2023-05-04] MEDS: ATORVASTATIN 40 MG TABLET PO SCH (20:46)
[2023-05-05 08:00] VITALS: BP 133/58; TEMP 97.9; O2SAT 96
[2023-05-05] MEDS: ASPIRIN EC 325 MG TABLET.DR PO SCH (09:13)
[2023-05-05] MEDS: NICOTINE 21 MG/24HR PATCH TD SCH (09:13)
[2023-05-05] MEDS: DOCUSATE SODIUM 100 MG CAPSULE PO SCH ×2 (09:13→20:17)
[2023-05-05] MEDS: LOSARTAN POTASSIUM 25 MG TABLET PO SCH (09:13)
[2023-05-05] MEDS: HEPARIN SODIUM,PORCINE 5,000 UNITS/ML VIAL SQ SCH ×2 (09:15→20:18)
[2023-05-05] MEDS: REMEDY ESSENTIAL ZINC PASTE 113 GM TOP SCH ×2 (09:23→20:26)
[2023-05-05] MEDS: SPIRIVA RESPIMAT INH SCH (09:24)
[2023-05-05] MEDS: STIOLTO RESPIMAT INJ SCH (09:26)
[2023-05-05 15:47] VITALS: BP 121/66; TEMP 97.6; O2SAT 97
[2023-05-05 19:35] VITALS: BP 104/58; TEMP 97.7; O2SAT 97
[2023-05-05] MEDS: FAMOTIDINE 20 MG TABLET PO SCH (20:17)
[2023-05-05] MEDS: ATORVASTATIN 40 MG TABLET PO SCH (20:17)
[2023-05-06 08:00] VITALS: BP 107/54; TEMP 97.5; O2SAT 97
[2023-05-06] MEDS: DOCUSATE SODIUM 100 MG CAPSULE PO SCH ×2 (08:33→21:24)
[2023-05-06] MEDS: ASPIRIN EC 325 MG TABLET.DR PO SCH (08:33)
[2023-05-06] MEDS: NICOTINE 21 MG/24HR PATCH TD SCH (08:33)
[2023-05-06] MEDS: LOSARTAN POTASSIUM 25 MG TABLET PO SCH (08:38)
[2023-05-06] MEDS: HEPARIN SODIUM,PORCINE 5,000 UNITS/ML VIAL SQ SCH ×2 (08:38→21:26)
[2023-05-06] MEDS: REMEDY ESSENTIAL ZINC PASTE 113 GM TOP SCH ×2 (08:39→21:28)
[2023-05-06] MEDS: STIOLTO RESPIMAT INJ SCH (09:00)
[2023-05-06] MEDS: SPIRIVA RESPIMAT INH SCH (09:00)
[2023-05-06 15:59] VITALS: BP 126/72; TEMP 98; O2SAT 93
[2023-05-06] MEDS: ACETAMINOPHEN 325 MG TABLET PO PRN (16:30)
[2023-05-06 20:00] VITALS: BP 124/67; TEMP 98.4; O2SAT 96
[2023-05-06] MEDS: ATORVASTATIN 40 MG TABLET PO SCH (21:24)
[2023-05-06] MEDS: FAMOTIDINE 20 MG TABLET PO SCH (21:24)
[2023-05-07 08:00] VITALS: BP 113/43; TEMP 98.3; O2SAT 96
[2023-05-07] MEDS: NICOTINE 21 MG/24HR PATCH TD SCH (08:07)
[2023-05-07] MEDS: DOCUSATE SODIUM 100 MG CAPSULE PO SCH (08:07)
[2023-05-07] MEDS: LOSARTAN POTASSIUM 25 MG TABLET PO SCH (08:08)
[2023-05-07] MEDS: ASPIRIN EC 325 MG TABLET.DR PO SCH (08:08)
[2023-05-07] MEDS: HEPARIN SODIUM,PORCINE 5,000 UNITS/ML VIAL SQ SCH (08:09)
[2023-05-07] MEDS: SPIRIVA RESPIMAT INH SCH (08:19)
[2023-05-07] MEDS: STIOLTO RESPIMAT INJ SCH (08:19)
[2023-05-07] MEDS: REMEDY ESSENTIAL ZINC PASTE 113 GM TOP SCH (08:20)
[2023-05-07 08:32] VITALS: BP 113/43; TEMP 98.3; O2SAT 96
[2023-05-07] MEDS: ACETAMINOPHEN 325 MG TABLET PO PRN (11:49)
== END 2023-05-07 14:25 | DRG 57 ==
PROVIDERS: ADMIT Physical Medicine & Rehabilitation Pain Medicine; ATTEND Physical Medicine & Rehabilitation Pain Medicine
DX: I69.354 Hemiplegia and hemiparesis following cerebral infarction affecting left non-dominant side (principal); N17.9 Acute kidney failure, unspecified; R55 Syncope and collapse; E11.9 Type 2 diabetes mellitus without complications; E78.5 Hyperlipidemia, unspecified; I10 Essential (primary) hypertension; I25.10 Atherosclerotic heart disease of native coronary artery without angina pectoris; J44.9 Chronic obstructive pulmonary disease, unspecified; Z87.891 Personal history of nicotine dependence; F39 Unspecified mood [affective] disorder; Z79.82 Long term (current) use of aspirin; Z88.2 Allergy status to sulfonamides; Z95.1 Presence of aortocoronary bypass graft; M19.90 Unspecified osteoarthritis, unspecified site
CPT/HCPCS: 36415; 83735; 84100; 85025; 97535-GO-CO; J1644